=== PATIENT | female | born 1985 | race Caucasian/White ===

== ENCOUNTER 2019-03-13 09:49 | Day surgery (SDC) | payer BC ==
[~2019-03-13] VITALS: Ht 162.6 cm; Wt 68.9 kg
[2019-03-13] VITALS (19 sets, daily range): BP systolic 91–140; BP diastolic 58–82; PULSE 54–88; RESP 12–28; Ht 162.6 cm; Wt 68.9 kg
[2019-03-13] MEDS ORDERED: LORA10TA3 PO (10:38)
[2019-03-13] MEDS ORDERED: LACTATED RINGER'S 1,000 ML IV SCH (11:00)
[2019-03-13] MEDS ORDERED: DESFLURANE 15 MIN ONE (12:00)
[2019-03-13] MEDS ORDERED: LIDOCAINE 1% (MPF) 30 ML INJ ONE (12:00)
--- NOTE | 2019-03-13 12:13 | PREAC ---
Date/Time of Note Date/Time of Note DATE: 03/13/19 TIME: 12:12 Anesthesia Eval and Record Evaluation Time Pre-Procedure Interview DATE: 03/13/19 TIME: 12:12 Age 33 Sex female NPO: 8 hrs Preoperative diagnosis VARICOSE VEINS Planned procedure LEFT LOWER EXTREMITY OHLEBECTOMY Past Medical History Past Medical History: None Surgery & Anesthesia Issues No known issue Meds Anticoagulation: No Beta Mauro within 24 hr: No Reason Beta Mauro not given: Pt. not on B-Mauro Reported Medications Loratadine* (Loratadine*) 10 Mg Tablet, 10 MG PO DAILY, #30 TAB 03/13/19 Current Medications Lactated Ringer's 1,000 ml @ 25 mls/hr Q24H IV Last administered on 03/13/19at 11:12; Admin Dose 25 MLS/HR; Start 03/13/19 at 11:00 Meds reviewed: Yes Allergies Coded Allergies: No Known Allergy (Unverified , 03/13/19) Allergies Reviewed: Yes Labs/Studies Labs Reviewed: Reviewed by anesthesiologist test: Negative Studies: ECG (N/A), CXR (N/A) Pre-procedure Exam Last vitals Vital Signs Date Temp Pulse Resp B/P (MAP) Pulse Ox O2 O2 Flow FiO2 Time Delivery Rate 03/13/19 98.6 73 16 114/62 99 Room Air 11:02 (79) Airway: Adequate mouth opening Mallampati: Mallampati I Teeth: Normal Lung: Normal Heart: Normal ASA Physical Status ASA physical status: 1 Emergency: None Planned Anesthetic General/MAC: ETT Planned Pain Management Parenteral pain med Pre-operative Attestations Prior to commencing anesthesia and surgery, the patient was re-evaluated, there was verification of: *The patient's identity *The results of appropriate recent lab work and preoperative vital signs *The above evaluation not changing prior to induction *Anesthetic plan, risk benefits, alternative and complications discussed with patient/family; questions answered; patient/family understands, accepts and wishes to proceed. DMITRI HARRIS MD March 13, 2019 12:13
[2019-03-13] MEDS ORDERED: PROPOFOL 20 ML ONE (12:17)
[2019-03-13] MEDS ORDERED: ROCURONIUM 50 MG INJ ONE (12:17)
[2019-03-13] MEDS ORDERED: ONDANSETRON 4 MG INJ ONE (12:18)
[2019-03-13] MEDS ORDERED: MIDAZOLAM 1 MG/ML 2 ML INJ ONE ×2 (12:18→13:38)
[2019-03-13] MEDS ORDERED: METOCLOPRAMIDE 10 MG INJ ONE (12:18)
[2019-03-13] MEDS ORDERED: KETOROLAC 30 MG INJ ONE (12:18)
[2019-03-13] MEDS ORDERED: FENTAnyl 50 MCG/ML VIAL IV PRN ×3 (12:30)
[2019-03-13] MEDS ORDERED: MEPERIDINE 25 MG INJ IV PRN (12:30)
[2019-03-13] MEDS ORDERED: OXYCODONE/ACETAMINOPHEN (5/325) TAB PO PRN ×2 (12:30)
[2019-03-13] MEDS ORDERED: ONDANSETRON 4 MG INJ IV PRN (12:30)
[2019-03-13] MEDS ORDERED: HYDROmorphONE 1 MG/5 ML IV SYRINGE IV PRN ×3 (12:30)
[2019-03-13] MEDS ORDERED: DIPHENHYDRAMINE 50 MG INJ IV PRN (12:30)
[2019-03-13] MEDS ORDERED: KETOROLAC 30 MG INJ IV PRN (12:30)
[2019-03-13] MEDS ORDERED: CEFAZOLIN 1 GM INJ ONE (12:33)
[2019-03-13] MEDS ORDERED: GLYCOPYRROLATE 0.4 MG INJ ONE (13:06)
[2019-03-13] MEDS ORDERED: NEOSTIGMINE 3 MG/3 ML SYRINGE ONE (13:06)
--- NOTE | 2019-03-13 13:22 | OPR ---
Date/Time of Note Date/Time of Note DATE: 03/13/19 TIME: 13:21 Operative Report Procedure Date: March 13, 2019 Preoperative Diagnosis Varicose vein left lower extremity Postoperative Diagnosis Same Operation/Procedure Performed Stab phlebectomy left lower extremity up to 10 stabs Surgeon see signature line Farm Manager None Anesthesia Type: general Estimated Blood Loss: minimal Transfusion none Specimen Varicose vein left leg Grafts/Implants none Complications none Disposition: PACU Procedure Description I made multiple 5 to 10 mm incisions left lower extremity from the back of the knee down to the mid leg posterior laterally incisions were taken down to subcutaneous tissue varicose veins were identified grasped using a hemostat long segment of the varicose vein was removed in the knee area and multiple small small segments were removed in the leg area No evidence of any bleeding was noted all wounds were irrigated using antibiotic solution and closed in 2 layers of 4-0 Vicryl suture for subcu Steri-Strips for the skin Leg was wrapped using Kerlix patient tolerated procedure well DEMETRIA REAVES MD March 13, 2019 13:22
[2019-03-13] MEDS ORDERED: HYDROmorphONE 1 MG/ML SYG IV ONE (14:00)
[2019-03-13] MEDS ORDERED: MIDAZOLAM 1 MG/ML 2 ML INJ IV PRN (14:00)
--- NOTE | 2019-03-13 18:57 | PAC ---
Date/Time of Note Date/Time of Note DATE: 03/13/19 TIME: 18:56 Post-Anesthesia Notes Post-Anesthesia Note Last documented vital signs Vital Signs Date Temp Pulse Resp B/P (MAP) Pulse Ox O2 O2 Flow FiO2 Time Delivery Rate 03/13/19 98.2 63 18 121/69 100 Room Air 15:06 (86) Activity: WNL Respiratory function: WNL Cardiovascular function: WNL Mental status: Baseline Pain reasonably controlled: Yes Hydration appropriate: Yes Nausea/Vomiting absent: No DMITRI HARRIS MD March 13, 2019 18:57
== END 2019-03-13 16:02 | disposition home or self-care (01) ==
LOC: SDS 09:49
PROVIDERS: ATTEND Thoracic Surgery (Cardiothoracic Vascular Surgery)
DX: I86.8 Varicose veins of other specified sites (principal)
CPT/HCPCS: 37765; 84703; 88304; J0690; J1170; J1885; J2175; J2250; J2405; J2710; J2765; J3010; Z7512; Z7610